=== PATIENT | male | born 1975 | race Hispanic/Latino ===

== ENCOUNTER 2024-02-14 10:52 | Emergency (ER) | payer SELFPAY, OTHER ==
[2024-02-14] MEDS ORDERED: Ketorolac Tromethamine 10 MG TAB ONE (11:40)
[2024-02-14] MEDS ORDERED: Cyclobenzaprine 10 MG TAB ONE (11:40)
== END 2024-02-14 13:20 | disposition home or self-care (01) ==
LOC: MADERS 10:52
DX: S13.4XXA Sprain of ligaments of cervical spine, initial encounter (principal); S33.5XXA Sprain of ligaments of lumbar spine, initial encounter; S86.911A Strain of unspecified muscle(s) and tendon(s) at lower leg level, right leg, initial encounter; V89.2XXA Person injured in unspecified motor-vehicle accident, traffic, initial encounter
CPT/HCPCS: 72040; 72100; 72125

== ENCOUNTER 2025-03-27 17:21 | Emergency (ER) | payer OTHER ==
[~2025-03-27 17:21] MED LIST: Iopamidol 370 76% 100 ML VIAL ONE
[2025-03-27] MEDS ORDERED: Acetaminophen 500 MG TAB ONE (18:52)
[2025-03-27] MEDS ORDERED: Orphenadrine Citrate 60 MG/2 ML VIAL ONE (18:53)
[2025-03-27 18:58] LABS: #Basophils 0.1 thou/uL (0.0-0.2); #Eosinophils 0.1 thou/uL (0.0-0.7); #Lymphocytes 2.2 thou/uL (1.20-3.40); #Monocytes 0.5 thou/uL (0.11-0.59); #Neutrophils 2.3 thou/uL (1.40-6.50); %Basophils 1.7 % (0.0-1.0); %Eosinophils 1.3 % (0.0-10.0); %Lymphocytes 43.3 % (21.0-51.0); %Monocytes 9.7 % (0.0-10.0); %Neutrophils 43.9 % (42.0-75.0); Hematocrit 44.4 % (42.0-52.0); Hemoglobin 14.8 g/dL (14.0-18.0); Mean Corpuscular Hemoglobin 31.3 pg (27.0-31.0); Mean Corpuscular Volume 94.1 fl (78.0-98.0); Platelet Count 277 10x3/uL (130-400); Red Blood Cell (RBC) Count 4.72 mill/uL (4.70-6.10); White Blood Cell (WBC) Count 5.1 10x3/uL (4.8-10.8)
[2025-03-27 19:13] LABS: ALT (SGPT) 21 U/L (Less than 45); AST (SGOT) 20 U/L (11-34); Albumin 4.2 g/dL (3.1-4.5); Alkaline Phosphatase 89 U/L (40-110); Anion Gap 16 mmol/L (10-20); BUN (Urea Nitrogen) 14 mg/dL (8.9-20.6); Bilirubin, Total 0.4 mg/dL (0.3-1.2); Calc. Creatinine Clearance 0 mL/min (70-130); Calcium 8.5 mg/dL (7.8-10.44); Carbon Dioxide 23 mmol/L (22-29); Chloride 103 mmol/L (98-107); Globulin 3.0 g/dL (2.4-3.5); Glucose 114 mg/dL (70-105); Lipase 21 U/L (8-78); Potassium 3.6 mmol/L (3.5-5.1); Sodium 138 mmol/L (136-145)
[2025-03-27 19:15] LABS: Troponin I Less than 0.010 ng/mL (< 0.028)
[2025-03-27 19:23] LABS: Glucose, Urine (Dipstick) Negative (Negative); Leukocyte Negative (Negative); Protein, Urine (Dipstick) Negative (Neg-Trace); Specific Gravity, Urine 1.015 (1.005-1.030)
[2025-03-27 19:25] LABS: CAUTI Indications for Culture Pelvic or flank pain; RBC/HPF None Seen HPF (0-3); WBC/HPF None Seen HPF (0-3)
[2025-03-27 19:27] LABS: Urine Culture Reflex No No
== END 2025-03-27 19:36 | disposition home or self-care (01) ==
LOC: MADERS 17:21
DX: S39.012A Strain of muscle, fascia and tendon of lower back, initial encounter (principal); V89.2XXA Person injured in unspecified motor-vehicle accident, traffic, initial encounter
CPT/HCPCS: 36415; 70450; 71260; 72125; 74177; 80053; 81001; 83690; 84484; 85025; 93005; 94760; 96374; J2360; Q9967